=== PATIENT | male | born 1945 | race Caucasian/White ===

== ENCOUNTER 2020-11-07 17:31 | Inpatient (IN) ==
[2020-11-07] MEDS ORDERED: ACETAMINOPHEN 500 MG TABLET PO STA (19:47)
[2020-11-07] MEDS ORDERED: SODIUM CHLORIDE 0.9% 500 ML IV STA (19:47)
[2020-11-07 20:27] LABS: Basophils # 0.1 10*3/uL (0.0-0.2); Basophils % 0.2 % (0.0-0.8); Eosinophils % 0.1 % (0.00-10.9); Hematocrit 38.1 VOL% (42.0-52.0); Hemoglobin 13.2 GM/DL (14.0-18.0); Immature Granulocytes % 0.8 %; Immature Granulocytes Absolute 0.18 #; Lymphocytes # 1.2 10*3/uL (1.4-4.0); Lymphocytes % 5.1 % (21.2-54.2); Mean Corpuscular HGB Conc 34.6 GM/DL (32-36); Mean Corpuscular Volume 91.1 FL (87-102); Mean Platelet Volume 9.2 FL (9.6-12.0); Monocytes % 9.2 % (1.7-12.7); Neutrophils % 84.6 % (38.7-73.9); Platelet Count 275 T/CUMM (130-400); Red Blood Count 4.18 MC/CUMM (3.8-5.5); Red Cell Distribution Width 13.2 % (9.3-17.3); White Blood Count 22.8 T/CUMM (4-12)
[2020-11-07 20:41] LABS: INR 1.1; PT Patient Result 12.5 SECS (10.5-12.0)
[2020-11-07 20:54] LABS: Albumin 3.8 G/DL (3.4-5.0); Bilirubin,Total 1.8 MG/DL (0.2-1.0); Calcium 9.1 MG/DL (8.5-10.1); Osmolality,Calculated 270.5 MOS/KG (273-304); Potassium 3.6 MMOL/L (3.5-5.1); Total Protein 7.7 G/DL (6.4-8.2)
[2020-11-07 20:55] LABS: Lymphocytes 6 % (20-55); Segmented Neutrophils 86 % (50-85); Total Cells Counted 100
[2020-11-07 20:56] LABS: Microcytosis 1+; Platelet Estimate Normal; Polychromasia 1+
[2020-11-07] MEDS ORDERED: BICILLIN LA 1,200,000 UNIT/2 ML SYRINGE IM STA (20:57)
[2020-11-07 21:10] LABS: Bacteria,Urine Occasional /HPF (Few); Bilirubin,Urine Negative (Negative); Blood, Urine Moderate mg/dL (Negative); Glucose,Urine (UA) Negative (Negative); Hyaline Casts,Urine 5 /LPF (0-3); Ketones,Urine Negative (Negative); Mucus,Urine Occasional /LPF (Occasional); Nitrite,Urine Negative (Negative); Protein,Urine 100 MG/DL; RBC,Urine 1 /HPF (0-4); Squamous Epithelial Cell,Urine Occasional /HPF (0-10); Urine Appearance CLEAR (Clear); Urine Color Amber (Yellow); Urine Specific Gravity 1.024 (1.001-1.035)
[2020-11-07] MEDS ORDERED: ALBUTEROL/IPRATROPIUM 3 ML NEB RESP TX PRN (22:03)
[2020-11-07] MEDS ORDERED: ACETAMINOPHEN 500 MG TABLET PO PRN (22:04)
[2020-11-07] MEDS ORDERED: MORPHINE 4 MG/1 ML VIAL IV PRN (22:11)
[2020-11-07] MEDS ORDERED: SODIUM CHLORIDE 0.9% 1,000 ML IV SCH (22:30)
[2020-11-07] MEDS ORDERED: SODIUM CHLORIDE 0.9% 1,000 ML IV STA (23:01)
[2020-11-08] MEDS: PIPERACILLIN/TAZOBACTAM 3,375 MG in SODIUM CHLORIDE 0.9% 100 ML IV SCH ×2 (00:28→06:12)
[2020-11-08 06:47] LABS: Basophils % 0.2 % (0.0-0.8); Eosinophils # 0.2 10*3/uL (0.0-0.87); Eosinophils % 0.9 % (0.00-10.9); Hemoglobin 12.4 GM/DL (14.0-18.0); Immature Granulocytes % 1.6 %; Immature Granulocytes Absolute 0.32 #; Lymphocytes % 5.2 % (21.2-54.2); Mean Corpuscular HGB Conc 34.4 GM/DL (32-36); Mean Corpuscular Volume 91.8 FL (87-102); Mean Platelet Volume 9.3 FL (9.6-12.0); Monocytes % 8.8 % (1.7-12.7); Neutrophils % 83.3 % (38.7-73.9); Platelet Count 251 T/CUMM (130-400); Red Blood Count 3.92 MC/CUMM (3.8-5.5); Red Cell Distribution Width 13.1 % (9.3-17.3); White Blood Count 19.9 T/CUMM (4-12)
[2020-11-08 07:07] LABS: Calcium 8.9 MG/DL (8.5-10.1); Potassium 3.7 MMOL/L (3.5-5.1)
[2020-11-08 07:08] LABS: Eosinophils 1 % (0-10); Lymphocytes 6 % (20-55); Platelet Estimate Adequate; Segmented Neutrophils 84 % (50-85); Total Cells Counted 100
[2020-11-08] MEDS: ENOXAPARIN 40 MG/0.4 ML SYRINGE SUBCUT SCH (08:49)
[2020-11-08] MEDS ORDERED: MELATONIN 3 MG TABLET PO PRN (08:57)
[2020-11-08] MEDS: GABAPENTIN 600 MG TABLET PO SCH ×3 (09:35→20:31)
[2020-11-08] MEDS: ESCITALOPRAM 10 MG TABLET PO SCH (09:35)
[2020-11-08] MEDS: ASPIRIN EC 81 MG TABLET PO SCH (09:35)
[2020-11-08] MEDS: ROSUVASTATIN 20 MG TABLET PO SCH (09:35)
[2020-11-08] MEDS: PANTOPRAZOLE 40 MG TABLET PO SCH (09:35)
[2020-11-08] MEDS: PRAMIPEXOLE 0.25 MG TABLET PO SCH (09:42)
[2020-11-08] MEDS ORDERED: MONTELUKAST 10 MG TABLET PO SCH (19:00)
[2020-11-09 06:49] LABS: Basophils % 0.1 % (0.0-0.8); Eosinophils # 0.3 10*3/uL (0.0-0.87); Eosinophils % 2.1 % (0.00-10.9); Hematocrit 35.6 VOL% (42.0-52.0); Hemoglobin 12.1 GM/DL (14.0-18.0); Immature Granulocytes % 0.6 %; Immature Granulocytes Absolute 0.08 #; Lymphocytes # 1.4 10*3/uL (1.4-4.0); Lymphocytes % 10.3 % (21.2-54.2); Mean Corpuscular Volume 91.5 FL (87-102); Mean Platelet Volume 9.4 FL (9.6-12.0); Neutrophils % 78.9 % (38.7-73.9); Platelet Count 271 T/CUMM (130-400); Red Blood Count 3.89 MC/CUMM (3.8-5.5); Red Cell Distribution Width 13.2 % (9.3-17.3); White Blood Count 13.9 T/CUMM (4-12)
[2020-11-09 08:20] VITALS: BP 108/59
[2020-11-09] MEDS: ROSUVASTATIN 20 MG TABLET PO SCH (08:36)
[2020-11-09] MEDS: PRAMIPEXOLE 0.25 MG TABLET PO SCH (08:36)
[2020-11-09] MEDS: PANTOPRAZOLE 40 MG TABLET PO SCH (08:36)
[2020-11-09] MEDS: GABAPENTIN 600 MG TABLET PO SCH (08:36)
[2020-11-09] MEDS: ESCITALOPRAM 10 MG TABLET PO SCH (08:36)
[2020-11-09] MEDS: ENOXAPARIN 40 MG/0.4 ML SYRINGE SUBCUT SCH (08:37)
[2020-11-09] MEDS: ASPIRIN EC 81 MG TABLET PO SCH (08:37)
[2020-11-13] MEDS ORDERED: ERGOCALCIFEROL 50,000 UNIT CAPSULE PO SCH (09:00)
== END 2020-11-09 10:38 | disposition home or self-care (01) | DRG 816 ==
LOC: N.ED 17:31 → N.EDINP 22:01 → SUATTDRO 22:01 → N.TELEN 23:20
PROVIDERS: ADMIT Internal Medicine; ATTEND Internal Medicine Geriatric Medicine

== ENCOUNTER 2021-05-09 17:49 | Inpatient (IN) ==
[2021-05-09] MEDS ORDERED: FUROSEMIDE 100 MG/10 ML VIAL IV STA (18:29)
[2021-05-09] MEDS ORDERED: ASPIRIN 325 MG TABLET PO STA (18:29)
[2021-05-09] MEDS ORDERED: methylPREDNISolone SOD SUC 125 MG/2 ML VIAL IV STA (18:29)
[2021-05-09] MEDS ORDERED: ALBUTEROL/IPRATROPIUM 3 ML NEB RESP TX STA (18:29)
[2021-05-09] MEDS ORDERED: MORPHINE 2 MG/1 ML SYRINGE IV STA (18:29)
[2021-05-09] MEDS ORDERED: ONDANSETRON 4 MG/2 ML VIAL IV STA (18:29)
[2021-05-09 18:39] LABS: Basophils % 0.1 % (0.0-0.8); Eosinophils % 0.2 % (0.00-10.9); Hemoglobin 12.3 GM/DL (14.0-18.0); Immature Granulocytes % 0.5 %; Immature Granulocytes Absolute 0.08 #; Lymphocytes # 0.7 10*3/uL (1.4-4.0); Lymphocytes % 3.9 % (21.2-54.2); Mean Corpuscular HGB Conc 33.2 GM/DL (32-36); Mean Corpuscular Volume 90.2 FL (87-102); Monocytes % 5.7 % (1.7-12.7); Neutrophils % 89.6 % (38.7-73.9); Platelet Count 302 T/CUMM (130-400); Red Cell Distribution Width 14.8 % (9.3-17.3)
[2021-05-09 18:46] LABS: INR 1.1
[2021-05-09 18:52] LABS: Albumin 3.4 G/DL (3.4-5.0); Calcium 8.8 MG/DL (8.5-10.1); Osmolality,Calculated 286.5 MOS/KG (273-304); Potassium 3.7 MMOL/L (3.5-5.1); Total Protein 7.2 G/DL (6.4-8.2)
[2021-05-09 19:10] LABS: Band Neutrophils 10 % (0-10); Eosinophils 1 % (0-10); Lymphocytes 2 % (20-55); Segmented Neutrophils 83 % (50-85); Total Cells Counted 100
[2021-05-09 19:12] LABS: Ovalocytes Slight
[2021-05-09 19:14] LABS: Schistocytes Slight
[2021-05-09 19:15] LABS: Platelet Estimate Adequate
[2021-05-09 19:16] LABS: Microcytosis Slight
[2021-05-09] MEDS ORDERED: ENOXAPARIN 100 MG/ML SYRINGE SUBCUT STA (19:28)
[2021-05-09] MEDS ORDERED: POTASSIUM CHLORIDE 20 MEQ TABLET PO PRN (20:13)
[2021-05-09] MEDS ORDERED: GLUCAGON 1 MG VIAL IM PRN (20:13)
[2021-05-09] MEDS ORDERED: POTASSIUM CHLORIDE 20 MEQ TABLET PO ONE (20:13)
[2021-05-09] MEDS ORDERED: MORPHINE 2 MG/1 ML SYRINGE IV PRN (20:13)
[2021-05-09] MEDS ORDERED: hydrALAZINE 20 MG/1 ML VIAL IV PRN (20:13)
[2021-05-09] MEDS ORDERED: ACETAMINOPHEN 325 MG TABLET PO PRN (20:13)
[2021-05-09] MEDS ORDERED: ONDANSETRON 4 MG/2 ML VIAL IV PRN (20:13)
[2021-05-09] MEDS ORDERED: ALBUTEROL/IPRATROPIUM 3 ML NEB RESP TX PRN (20:13)
[2021-05-09] MEDS ORDERED: DEXTROSE 50% 25 GM/50 ML SYRINGE IV PRN (20:23)
[2021-05-09 20:27] LABS: Bilirubin,Urine Negative (Negative); Blood, Urine Small mg/dL (Negative); Glucose,Urine (UA) Negative (Negative); Hyaline Casts,Urine 4 /LPF (0-3); Ketones,Urine Negative (Negative); Mucus,Urine Occasional /LPF (Occasional); Nitrite,Urine Negative (Negative); Protein,Urine Negative; RBC,Urine 1 /HPF (0-4); Squamous Epithelial Cell,Urine Occasional /HPF (0-10); Urine Appearance CLEAR (Clear); Urine Color Yellow (Yellow); Urine Specific Gravity 1.009 (1.001-1.035); Urine Urobilinogen < 2.0 EU/DL (0.2-1.0)
[2021-05-10] MEDS: MELATONIN 3 MG TABLET PO PRN ×2 (00:20→21:27)
[2021-05-10 06:40] LABS: Basophils % 0.1 % (0.0-0.8); Hematocrit 36.5 VOL% (42.0-52.0); Hemoglobin 12.1 GM/DL (14.0-18.0); Immature Granulocytes % 0.6 %; Immature Granulocytes Absolute 0.07 #; Lymphocytes # 0.5 10*3/uL (1.4-4.0); Lymphocytes % 4.4 % (21.2-54.2); Mean Corpuscular HGB Conc 33.2 GM/DL (32-36); Mean Platelet Volume 9.7 FL (9.6-12.0); Monocytes % 2.3 % (1.7-12.7); Neutrophils % 92.6 % (38.7-73.9); Platelet Count 270 T/CUMM (130-400); Red Blood Count 4.01 MC/CUMM (3.8-5.5); Red Cell Distribution Width 14.7 % (9.3-17.3); White Blood Count 11.9 T/CUMM (4-12)
[2021-05-10 06:59] LABS: Band Neutrophils 6 % (0-10); Lymphocytes 3 % (20-55); Segmented Neutrophils 90 % (50-85); Total Cells Counted 100
[2021-05-10 07:00] LABS: Microcytosis 1+; Ovalocytes Slight; Platelet Estimate Normal
[2021-05-10 07:06] LABS: Risk Ratio 3.83; Thyroid Stimulating Hormone 1.16 uIU/ml (0.358-3.74); VLDL Cholesterol 21.6 MG/DL
[2021-05-10 07:09] LABS: Bilirubin,Total 1.6 MG/DL (0.20-1.00); Calcium 8.9 MG/DL (8.5-10.1); Osmolality,Calculated 288.5 MOS/KG (273-304); Potassium 3.7 MMOL/L (3.5-5.1); Total Protein 7.3 G/DL (6.4-8.2)
[2021-05-10 07:57] LABS: Hepatitis B Core IgM Quant 0.13 Index; Hepatitis B Surface Ag Quant < 0.10 Index; Hepatitis B Surface Ag Result Non-Reactive (NonReactive); Hepatitis C Virus Ab Quant 0.07 Index; Hepatitis C Virus Ab Result Non-Reactive (NonReactive)
[2021-05-10] MEDS: azaTHIOprine 50 MG TABLET PO SCH ×2 (09:39→21:18)
[2021-05-10] MEDS: FERROUS SULFATE 325 MG TABLET PO SCH (09:39)
[2021-05-10] MEDS: carvediloL 3.125 MG TABLET PO SCH ×2 (09:40→21:18)
[2021-05-10] MEDS: ESCITALOPRAM 10 MG TABLET PO SCH (09:40)
[2021-05-10] MEDS: predniSONE 5 MG TABLET PO SCH (09:40)
[2021-05-10] MEDS: ASPIRIN EC 81 MG TABLET PO SCH (09:40)
[2021-05-10] MEDS: GABAPENTIN 600 MG TABLET PO SCH ×3 (09:40→21:18)
[2021-05-10] MEDS: FUROSEMIDE 40 MG/4 ML VIAL IV SCH ×2 (09:40→16:37)
[2021-05-10] MEDS: PRAMIPEXOLE 0.25 MG TABLET PO SCH ×2 (09:40→21:18)
[2021-05-10] MEDS: PANTOPRAZOLE 40 MG TABLET PO SCH (09:40)
[2021-05-10] MEDS: ROSUVASTATIN 20 MG TABLET PO SCH (12:14)
[2021-05-10] MEDS: ENOXAPARIN 40 MG/0.4 ML SYRINGE SUBCUT SCH (21:19)
[2021-05-11 05:51] LABS: Basophils % 0.1 % (0.0-0.8); Eosinophils # 0.1 10*3/uL (0.0-0.87); Eosinophils % 0.3 % (0.00-10.9); Hematocrit 32.6 VOL% (42.0-52.0); Hemoglobin 10.9 GM/DL (14.0-18.0); Immature Granulocytes % 0.5 %; Immature Granulocytes Absolute 0.08 #; Lymphocytes # 1.2 10*3/uL (1.4-4.0); Lymphocytes % 7.6 % (21.2-54.2); Mean Corpuscular HGB Conc 33.4 GM/DL (32-36); Mean Corpuscular Volume 90.1 FL (87-102); Monocytes % 5.9 % (1.7-12.7); Neutrophils % 85.6 % (38.7-73.9); Platelet Count 330 T/CUMM (130-400); Red Blood Count 3.62 MC/CUMM (3.8-5.5); Red Cell Distribution Width 14.6 % (9.3-17.3); White Blood Count 15.8 T/CUMM (4-12)
[2021-05-11 06:15] LABS: Calcium 8.4 MG/DL (8.5-10.1); Osmolality,Calculated 290.5 MOS/KG (273-304); Potassium 3.3 MMOL/L (3.5-5.1)
[2021-05-11] MEDS: FUROSEMIDE 40 MG/4 ML VIAL IV SCH ×2 (09:25→15:41)
[2021-05-11] MEDS: azaTHIOprine 50 MG TABLET PO SCH ×2 (09:26→20:34)
[2021-05-11] MEDS: GABAPENTIN 600 MG TABLET PO SCH ×3 (09:26→20:34)
[2021-05-11] MEDS: predniSONE 5 MG TABLET PO SCH (09:26)
[2021-05-11] MEDS: POTASSIUM CHLORIDE 20 MEQ TABLET PO SCH (09:26)
[2021-05-11] MEDS: ROSUVASTATIN 20 MG TABLET PO SCH (09:26)
[2021-05-11] MEDS: carvediloL 3.125 MG TABLET PO SCH ×2 (09:26→20:34)
[2021-05-11] MEDS: PRAMIPEXOLE 0.25 MG TABLET PO SCH ×2 (09:27→20:34)
[2021-05-11] MEDS: FERROUS SULFATE 325 MG TABLET PO SCH (09:27)
[2021-05-11] MEDS: ESCITALOPRAM 10 MG TABLET PO SCH (09:27)
[2021-05-11] MEDS: PANTOPRAZOLE 40 MG TABLET PO SCH (09:27)
[2021-05-11] MEDS: ASPIRIN EC 81 MG TABLET PO SCH (09:27)
[2021-05-11 09:43] LABS: Basophils % 0.1 % (0.0-0.8); Eosinophils # 0.1 10*3/uL (0.0-0.87); Eosinophils % 0.6 % (0.00-10.9); Hematocrit 36.3 VOL% (42.0-52.0); Hemoglobin 12.1 GM/DL (14.0-18.0); Immature Granulocytes % 0.5 %; Immature Granulocytes Absolute 0.08 #; Lymphocytes # 1.2 10*3/uL (1.4-4.0); Lymphocytes % 6.9 % (21.2-54.2); Mean Corpuscular HGB Conc 33.3 GM/DL (32-36); Mean Corpuscular Volume 91.2 FL (87-102); Mean Platelet Volume 9.8 FL (9.6-12.0); Monocytes % 5.1 % (1.7-12.7); Neutrophils % 86.8 % (38.7-73.9); Platelet Count 345 T/CUMM (130-400); Red Blood Count 3.98 MC/CUMM (3.8-5.5); Red Cell Distribution Width 14.4 % (9.3-17.3); White Blood Count 17.4 T/CUMM (4-12)
[2021-05-11] MEDS: ENOXAPARIN 40 MG/0.4 ML SYRINGE SUBCUT SCH (20:34)
[2021-05-11] MEDS: MELATONIN 3 MG TABLET PO PRN (20:35)
[2021-05-12 06:24] LABS: Basophils % 0.1 % (0.0-0.8); Eosinophils # 0.2 10*3/uL (0.0-0.87); Eosinophils % 1.5 % (0.00-10.9); Hematocrit 34.8 VOL% (42.0-52.0); Hemoglobin 11.5 GM/DL (14.0-18.0); Immature Granulocytes % 0.6 %; Immature Granulocytes Absolute 0.09 #; Lymphocytes % 6.8 % (21.2-54.2); Mean Corpuscular Volume 90.2 FL (87-102); Mean Platelet Volume 9.7 FL (9.6-12.0); Monocytes % 6.8 % (1.7-12.7); Neutrophils % 84.2 % (38.7-73.9); Platelet Count 362 T/CUMM (130-400); Red Blood Count 3.86 MC/CUMM (3.8-5.5); Red Cell Distribution Width 14.6 % (9.3-17.3); White Blood Count 14.7 T/CUMM (4-12)
[2021-05-12 06:51] LABS: Albumin 2.9 G/DL (3.4-5.0); Bilirubin,Total 1.1 MG/DL (0.20-1.00); Calcium 8.4 MG/DL (8.5-10.1); Osmolality,Calculated 286.4 MOS/KG (273-304); Potassium 3.2 MMOL/L (3.5-5.1); Total Protein 6.8 G/DL (6.4-8.2)
[2021-05-12] MEDS ORDERED: POTASSIUM CHLORIDE 20 MEQ TABLET PO ONE (07:29)
[2021-05-12] MEDS ORDERED: POTASSIUM CHLORIDE 20 MEQ TABLET PO PRN (07:43)
[2021-05-12] MEDS: ASPIRIN EC 81 MG TABLET PO SCH (08:37)
[2021-05-12] MEDS: PANTOPRAZOLE 40 MG TABLET PO SCH (08:37)
[2021-05-12] MEDS: GABAPENTIN 600 MG TABLET PO SCH ×3 (08:37→21:05)
[2021-05-12] MEDS: carvediloL 3.125 MG TABLET PO SCH ×2 (08:37→21:04)
[2021-05-12] MEDS: FUROSEMIDE 40 MG TABLET PO SCH (08:38)
[2021-05-12] MEDS: FERROUS SULFATE 325 MG TABLET PO SCH (08:38)
[2021-05-12] MEDS: azaTHIOprine 50 MG TABLET PO SCH ×2 (08:38→21:04)
[2021-05-12] MEDS: predniSONE 5 MG TABLET PO SCH (08:38)
[2021-05-12] MEDS: PRAMIPEXOLE 0.25 MG TABLET PO SCH ×2 (08:38→21:04)
[2021-05-12] MEDS: ESCITALOPRAM 10 MG TABLET PO SCH (08:39)
[2021-05-12] MEDS: FUROSEMIDE 40 MG/4 ML VIAL IV SCH (09:27)
[2021-05-12] MEDS: POTASSIUM CHLORIDE 20 MEQ TABLET PO SCH (12:01)
[2021-05-12] MEDS: MELATONIN 3 MG TABLET PO PRN (21:04)
[2021-05-12] MEDS: ENOXAPARIN 40 MG/0.4 ML SYRINGE SUBCUT SCH (21:05)
[2021-05-13 06:02] LABS: Basophils % 0.1 % (0.0-0.8); Eosinophils # 0.3 10*3/uL (0.0-0.87); Eosinophils % 2.2 % (0.00-10.9); Hematocrit 34.8 VOL% (42.0-52.0); Hemoglobin 11.2 GM/DL (14.0-18.0); Immature Granulocytes % 1.1 %; Immature Granulocytes Absolute 0.16 #; Lymphocytes % 7.3 % (21.2-54.2); Mean Corpuscular HGB Conc 32.2 GM/DL (32-36); Mean Corpuscular Volume 91.3 FL (87-102); Mean Platelet Volume 9.4 FL (9.6-12.0); Monocytes % 7.5 % (1.7-12.7); Neutrophils % 81.8 % (38.7-73.9); Platelet Count 360 T/CUMM (130-400); Red Blood Count 3.81 MC/CUMM (3.8-5.5); Red Cell Distribution Width 14.6 % (9.3-17.3); White Blood Count 14.2 T/CUMM (4-12)
[2021-05-13 06:34] LABS: Albumin 2.8 G/DL (3.4-5.0); Bilirubin,Total 2.2 MG/DL (0.20-1.00); Calcium 8.8 MG/DL (8.5-10.1); Osmolality,Calculated 276.8 MOS/KG (273-304); Potassium 3.5 MMOL/L (3.5-5.1); Total Protein 6.7 G/DL (6.4-8.2)
[2021-05-13] MEDS: POTASSIUM CHLORIDE 20 MEQ TABLET PO SCH (08:27)
[2021-05-13] MEDS: PRAMIPEXOLE 0.25 MG TABLET PO SCH (08:29)
[2021-05-13] MEDS: ASPIRIN EC 81 MG TABLET PO SCH (08:29)
[2021-05-13] MEDS: PANTOPRAZOLE 40 MG TABLET PO SCH (08:29)
[2021-05-13] MEDS: GABAPENTIN 600 MG TABLET PO SCH (08:29)
[2021-05-13] MEDS: carvediloL 3.125 MG TABLET PO SCH (08:29)
[2021-05-13] MEDS: FUROSEMIDE 40 MG TABLET PO SCH (08:29)
[2021-05-13] MEDS: FERROUS SULFATE 325 MG TABLET PO SCH (08:29)
[2021-05-13] MEDS: predniSONE 5 MG TABLET PO SCH (08:29)
[2021-05-13] MEDS: ESCITALOPRAM 10 MG TABLET PO SCH (08:30)
[2021-05-13] MEDS: azaTHIOprine 50 MG TABLET PO SCH (08:30)
[2021-05-13 11:58] VITALS: BP 109/61
== END 2021-05-13 14:13 | disposition home health service (06) | DRG 280 ==
LOC: EDBD → EDUNIT# → N.ED 17:49 → N.EDINP 17:49 → SUATTDRO 20:13 → N.EDINP 22:33 → N.TELES 22:39
PROVIDERS: ADMIT Internal Medicine; ATTEND Internal Medicine